=== PATIENT | female | born 1985 | race American Indian/Alaskan Native ===

== ENCOUNTER 2021-06-06 20:51 | Emergency (ER) | payer OTHER, SELFPAY ==
[2021-06-06 23:35] VITALS: BP 129/93
[2021-06-06] MEDS ORDERED: IBUPROFEN 600 MG TAB PO ONE (23:35)
--- NOTE | 2021-06-06 23:38 | Emergency Department Report ---
- General Chief Complaint: Upper Respiratory Infection Stated Complaint: CHEST PAIN/SOB Source: patient Mode of arrival: Ambulatory Limitations: No Limitations - History of Present Illness Initial Comments: Patient is a 35-year-old -[place] female with a history of hypertension and gestational diabetes who presents to the ED with complaint of acute onset persistent nasal and sinus congestion, sinus pressure, persistent dry cough, shortness of breath, diffuse body aches and pains, fever and chills for the last 1 week. Patient states that her and one of her children tested positive for COVID-19 viral infection. Patient states that she tested herself at home for COVID-19 viral infection using a home-based rapid Covid 19 test kit and that it was negative but she was unsure. Patient denies dizziness, syncope, chest pain or abdominal pain, diaphoresis, palpitations, sore throat, nausea and vomiting and diarrhea or dysuria, urinary frequency and urgency. MD Complaint: fever, cough, rhinorrhea, nasal congestion, sinus pain, other (Diffuse body aches and pains) -: Sudden, week(s) (1) Severity: severe Severity scale (0 -10): 7 Quality: sharp, aching Consistency: constant Improves With: nothing Worsens With: nothing Context: sick contacts (Family tested positive for COVID-19 at home about a week or so ago) Associated Symptoms: denies other symptoms, fever, chills, myalgias, headache, rhinorrhea, nasal congestion, cough. denies: diaphoresis, sore throat, stiff neck, chest pain, shortness of breath, abdominal pain, nausea, vomiting, diarrhea, dysuria, rash, confusion, right sweats, weight loss, epistaxis, hoarseness, ear pain, other Treatments Prior to Arrival: Acetaminophen - Related Data Previous Rx's Medication Instructions Recorded Last Taken Type Ibuprofen [Motrin 800 MG tab] 800 mg PO TID PRN #30 tablet 06/17/15 Unknown Rx Lidocain2.5%/Prilocai2.5% [Emla] 5 gm TP ONCE #1 tube 06/17/15 Unknown Rx oxyCODONE /ACETAMINOPHEN [Percocet 1 - 2 tab PO Q4HR PRN #30 tablet 06/17/15 Unknown Rx 5/325 mg] Acetaminophen [Tylenol] 500 mg PO Q6HR PRN #30 tablet 09/26/21 Unknown Rx Ascorbic Acid [Vitamin C] 1,000 mg PO Q12H #30 tablet 06/07/21 Unknown Rx Benzonatate [Tessalon Perles] 100 mg PO Q8HR #30 capsule 06/07/21 Unknown Rx Cetirizine HCl [Zyrtec 10mg tab] 10 mg PO DAILY #30 tablet 06/07/21 Unknown Rx Doxycycline Hyclate 100 mg PO Q12H #20 capsule 06/07/21 Unknown Rx Zinc Acetate [Galzin 50mg CAP] 50 mg PO DAILY #30 capsule 06/07/21 Unknown Rx Allergies Allergy/AdvReac Type Severity Reaction Status Date / Time No Known Allergies Allergy Unverified 06/17/15 12:51 ED Review of Systems ROS: Stated complaint: CHEST PAIN/SOB Other details as noted in HPI Constitutional: chills, fever, malaise, weakness Eyes: denies: eye pain, eye discharge, vision change ENT: congestion. denies: ear pain, throat pain Respiratory: cough (Dry cough). denies: shortness of breath, wheezing Cardiovascular: denies: chest pain, palpitations Endocrine: no symptoms reported Gastrointestinal: denies: abdominal pain, nausea, vomiting, diarrhea Genitourinary: denies: urgency, dysuria, discharge Musculoskeletal: denies: back pain, joint swelling, arthralgia Skin: denies: rash, lesions Neurological: headache. denies: weakness, paresthesias Psychiatric: denies: anxiety, depression Hematological/Lymphatic: denies: easy bleeding, easy bruising ED Past Medical Hx - Past Medical History Hx Hypertension: Yes (previous ) Hx Heart Attack/AMI: No Hx Congestive Heart Failure: No Hx Diabetes: Yes (GDM this ) Hx Deep Vein Thrombosis: No Hx Renal Disease: No Hx Sickle Cell Disease: No Hx Seizures: No Hx Asthma: No Hx COPD: No Hx HIV: No - Social History Smoking Status: Never Smoker - Medications Home Medications: Home Medications Medication Instructions Recorded Confirmed Last Taken Type Ibuprofen [Motrin 800 MG tab] 800 mg PO TID PRN #30 tablet 06/17/15 Unknown Rx Lidocain2.5%/Prilocai2.5% [Emla] 5 gm TP ONCE #1 tube 06/17/15 Unknown Rx oxyCODONE /ACETAMINOPHEN [Percocet 1 - 2 tab PO Q4HR PRN #30 tablet 06/17/15 Unknown Rx 5/325 mg] Acetaminophen [Tylenol] 500 mg PO Q6HR PRN #30 tablet 06/07/21 Unknown Rx Ascorbic Acid [Vitamin C] 1,000 mg PO Q12H #30 tablet 06/07/21 Unknown Rx Benzonatate [Tessalon Perles] 100 mg PO Q8HR #30 capsule 06/07/21 Unknown Rx Cetirizine HCl [Zyrtec 10mg tab] 10 mg PO DAILY #30 tablet 06/07/21 Unknown Rx Doxycycline Hyclate 100 mg PO Q12H #20 capsule 06/07/21 Unknown Rx Zinc Acetate [Galzin 50mg CAP] 50 mg PO DAILY #30 capsule 06/07/21 Unknown Rx ED Physical Exam - General Limitations: No Limitations General appearance: alert, in no apparent distress - Head Head exam: Present: atraumatic, normocephalic, normal inspection - Eye Eye exam: Present: normal appearance, PERRL, EOMI Pupils: Present: normal accommodation - ENT ENT exam: Present: normal orophraynx, mucous membranes moist, TM's normal bilaterally, normal external ear exam, other (Grossly congested nasal passages; palpable frontal and maxillary sinus tenderness) - Neck Neck exam: Present: normal inspection, full ROM - Respiratory Respiratory exam: Present: normal lung sounds bilaterally. Absent: respiratory distress, wheezes, rales, rhonchi, chest wall tenderness, accessory muscle use, decreased breath sounds - Cardiovascular Cardiovascular Exam: Present: normal rhythm, tachycardia, normal heart sounds. Absent: systolic murmur, diastolic murmur, rubs, gallop - GI/Abdominal GI/Abdominal exam: Present: soft, normal bowel sounds. Absent: distended, tenderness, guarding, rebound, hyperactive bowel sounds, hypoactive bowel sounds, organomegaly - Extremities Exam Extremities exam: Present: normal inspection, full ROM, normal capillary refill - Back Exam Back exam: Present: normal inspection, full ROM. Absent: tenderness, CVA tenderness (R), CVA tenderness (L), muscle spasm, paraspinal tenderness - Neurological Exam Neurological exam: Present: alert, oriented X3, CN II-XII intact, normal gait, reflexes normal - Psychiatric Psychiatric exam: Present: normal affect, normal mood - Skin Skin exam: Present: warm, dry, intact, normal color. Absent: rash ED Course Vital Signs 06/06/21 23:33 Temperature 99.4 F Pulse Rate 115 H Respiratory 14 Rate Blood Pressure 129/93 [Left] O2 Sat by Pulse 100 Oximetry ED Medical Decision Making - Lab Data Result diagrams: 06/07/21 00:08 06/07/21 00:08 - Radiology Data Radiology results: report reviewed, image reviewed [facility] [address] [place] [address] XRay Report Signed Patient: TAPAN TOM MR#: [id number] : 1985 Acct:[id number] Age/Sex: 35 / F ADM Date: 06/06/21 Loc: ED Attending Dr: Ordering Physician: DEE ESPINO Date of Service: 06/06/21 Procedure(s): XR chest routine 2V Accession Number(s): [id number] cc: DEE ESPINO Fluoro Time In Minutes: CHEST 2 VIEWS INDICATION / CLINICAL INFORMATION: cough, fever STUDY TIME: 20 COMPARISON: None available. FINDINGS: SUPPORT DEVICES: None. HEART / MEDIASTINUM: No significant abnormality. LUNGS / PLEURA: Moderate bibasilar atelectatic changes are seen and I have concern for developing bibasilar pneumonitis. This is mildly worse on the left. No definite pleural effusions are seen. Follow-up is recommended. No pneumothorax. ADDITIONAL FINDINGS: No significant additional findings. Signer Name: Leonard Underwood MD Signed: 06/07/2021 12:28 AM Workstation Name: [id number] Transcribed By: GJ Dictated By: Leonard Underwood MD Electronically Authenticated By: Leonard Underwood MD Signed Date/Time: 06/07/2127 DD/ TD/TT: Print - Medical Decision Making This is a 35-year-old -[place] female with a history of hypertension and gestational diabetes who presents to the ED with complaint of acute onset persistent nasal and sinus congestion, sinus pressure, persistent dry cough, shortness of breath, diffuse body aches and pains, fever and chills for the last 1 week. Patient states that her and one of her children tested positive for COVID-19 viral infection. Patient states that she tested herself at home for COVID-19 viral infection using a home-based rapid Covid 19 test kit and that it was negative but she was unsure. In the ED, patient is alert and oriented x3 and is not in any distress. Patient was treated in the ED for fever and pain, patient also received DuoNeb and oral prednisone in the ED. Chest x- ray showed moderate bibasilar atelectatic changes are seen and I have concern for developing bibasilar pneumonitis. This is mildly worse on the left. No definite pleural effusions are seen. Follow-up is recommended. No pneumothorax. On reevaluation, patient pain better tachycardia resolved to 88 bpm and patient's oxygen saturation was 100% in room air. And was discharged home on medications. Patient was advised to get tested for COVID-19 viral infection in any of the outpatient facilities and if positive to self quarantine at home for 10 days, and there after to follow-up with her primary care physician in 10 days for reevaluation. Patient was advised return to the ED immediately if symptoms get worse. - Differential Diagnosis Pneumonia; bronchitis; URI; COVID-19 Critical care attestation.: If time is entered above; I have spent that time in minutes in the direct care of this critically ill patient, excluding procedure time. ED Disposition Clinical Impression: Pneumonia due to 2019 novel coronavirus, Dyspnea due to COVID-19, Upper respiratory tract infection due to COVID-19 virus Community acquired pneumonia Qualifiers: Laterality: left Lung location: lower lobe of lung Qualified Code(s): J18.9 - Pneumonia, unspecified organism Disposition: HOME / SELF CARE / HOMELESS Is pt being admited?: No Does the pt Need Aspirin: No Condition: Stable Instructions: Bacterial Pneumonia (ED), Shortness of Breath, Adult, [id number], COVID-19 Frequently Asked Questions Additional Instructions: Chest x-ray showed bibasilar pneumonia possibly due to COVID-19 viral infection or otherwise. Other lab test results are nonactionable. Therefore take medications with food, drink plenty of fluids and follow-up with your primary care physician in 7 to 10 days for reevaluation. Ensure that you get tested for COVID-19 viral infection at any of the outpatient facilities and if positive self quarantine for 10 days. Return to the ED immediately if symptoms get worse. Prescriptions: Acetaminophen [Tylenol] 500 mg PO Q6HR PRN #30 tablet PRN Reason: PAIN OR FEVER Doxycycline Hyclate 100 mg PO Q12H #20 capsule Zinc Acetate [Galzin 50mg CAP] 50 mg PO DAILY #30 capsule Benzonatate [Tessalon Perles] 100 mg PO Q8HR #30 capsule Ascorbic Acid [Vitamin C] 1,000 mg PO Q12H #30 tablet Cetirizine HCl [Zyrtec 10mg tab] 10 mg PO DAILY #30 tablet Time of Disposition: 03:11 Print Language: [place]
[2021-06-07 00:25] LABS: Basophils % (Auto) 0.2 % (0.0-1.8); Hemoglobin 13.8 gm/dl (10.1-14.3); Lymphocytes # (Auto) 1.6 K/mm3 (1.2-5.4); Lymphocytes % (Auto) 25.4 % (13.4-35.0); Mean Corpuscular HGB Conc 34 % (30-34); Mean Corpuscular Volume 80 fl (79-97); Monocytes # (Auto) 0.5 K/mm3 (0.0-0.8); Monocytes % (Auto) 8.4 % (0.0-7.3); Platelet Count 236 K/mm3 (140-440); Red Cell Distribution Width 14.9 % (13.2-15.2)
--- NOTE | 2021-06-07 00:32 | XRay Report ---
CHEST 2 VIEWS INDICATION / CLINICAL INFORMATION: cough, fever STUDY TIME: 20 COMPARISON: None available. FINDINGS: SUPPORT DEVICES: None. HEART / MEDIASTINUM: No significant abnormality. LUNGS / PLEURA: Moderate bibasilar atelectatic changes are seen and I have concern for developing bib asilar pneumonitis. This is mildly worse on the left. No definite pleural effusions are seen. Follow- up is recommended. No pneumothorax. ADDITIONAL FINDINGS: No significant additional findings. Signer Name: Leonard Underwood MD Signed: 06/07/2021 12:28 AM Workstation Name: [id number]
[2021-06-07] MEDS ORDERED: LIDOCAINE-MPF (1%) 10 MG/1 ML VIAL 5 ML INFILTRATI ONE (00:40)
[2021-06-07] MEDS ORDERED: AZITHROMYCIN 250 MG TAB PO ONE (00:40)
[2021-06-07] MEDS ORDERED: IPRATROPIUM/ALBUTEROL SULFATE 3 ML AMPUL.NEB IH ONE (00:41)
[2021-06-07] MEDS ORDERED: predniSONE 20 MG TAB PO ONE (00:41)
[2021-06-07 00:56] LABS: Alanine Aminotransferase 12 units/L (7-56); Albumin 3.8 g/dL (3.9-5); Blood Urea Nitrogen 7 mg/dL (7-17); Calcium 9.2 mg/dL (8.4-10.2); Hemolysis Index 3
[2021-06-07 00:57] LABS: BUN/Creatinine Ratio 14
[2021-06-07 01:47] LABS: Bilirubin,Urine NEG (Negative); Blood,Urine SM (Negative); Color,Urine Yellow (Yellow); Mucus,Urine FEW /HPF
== END 2021-06-07 04:51 | disposition home or self-care (01) ==
LOC: ED 20:51
DX: U07.1 COVID-19 (principal); J12.82 Pneumonia due to coronavirus disease 2019; J06.9 Acute upper respiratory infection, unspecified; I10 Essential (primary) hypertension; E11.9 Type 2 diabetes mellitus without complications; Z79.899 Other long term (current) drug therapy
CPT/HCPCS: 36415; 71046; 80053; 81001; 85025; 94640; 96372; 99284; J0696